=== PATIENT | male | born 1985 | race Two or more races ===

== ENCOUNTER 2018-03-10 11:21 | Emergency (ER) | payer OTHER ==
[2018-03-10] MEDS ORDERED: ONDANSETRON 4 MG/2 ML VIAL IVP STA (13:27)
[2018-03-10] MEDS ORDERED: MORPHINE 2 MG/ML CARPUJECT IVP STA ×2 (13:27→16:08)
[2018-03-10] MEDS ORDERED: IOPAMIDOL-300 100 ML VIAL ONE (13:32)
--- NOTE | 2018-03-10 13:32 | ED Physician Documentation ---
PD HPI HEADACHE - Stated complaint Stated Complaint: MIGRAINE - Chief complaint Chief Complaint: Neuro - History obtained from History obtained from: Patient - History of Present Illness Timing - onset: Other (This is a 32-year-old gentleman with no significant past medical history no history of headache syndrome who over the last 3 days has had episodic global severe headaches. Basically the pattern is he has a rapid onset headache over 3 minutes that is a pulsatile sensation with light sensitivity and he has nausea and vomited once on Thursday. He has had this 2 more times since. Then has a persistent mild headache in between. There is no URI symptoms or fever, no neck stiffness. No recent international travel but he did travel across the [place].) Review of Systems Ten Systems: 10 systems reviewed and negative Constitutional: denies: Fever, Chills Throat: denies: Sore throat Cardiac: denies: Chest pain / pressure, Palpitations Respiratory: denies: Dyspnea, Cough GI: denies: Abdominal Pain PD PAST MEDICAL HISTORY - Past Surgical History Past Surgical History: No - Present Medications Home Medications: Ambulatory Orders Medication Instructions Recorded Confirmed Hydrocodone/Acetaminophen 1 - 2 each PO Q6H PRN #14 tablet 03/10/18 [Hydrocodon-Acetaminophen 5-325] Ibuprofen [Motrin] 800 mg PO Q8H PRN #30 tablet 03/10/18 Ondansetron Odt [Zofran] 4 mg TL Q6H PRN #10 tablet 03/10/18 - Allergies Allergies/Adverse Reactions: Allergies Allergy/AdvReac Type Severity Reaction Status Date / Time No Known Drug Allergies Allergy Verified 03/10/18 11:31 - Social History Does the pt smoke?: No Smoking Status: Never smoker Does the pt drink ETOH?: No Does the pt have substance abuse?: No - Immunizations Immunizations are current?: Yes PD ED PE NORMAL - Vitals Vital signs reviewed: Yes - General General: Alert and oriented X 3 (He appears uncomfortable and photophobic) - HEENT HEENT: EOMI, Other (Pupils are slightly dilated but symmetric) - Neck Neck: Supple, no meningeal sign, No bony TTP - Cardiac Cardiac: RRR, No murmur - Respiratory Respiratory: No respiratory distress, Clear bilaterally - Abdomen Abdomen: Normal bowel sounds, Soft, Non tender - Back Back: No CVA TTP, No spinal TTP - Derm Derm: Normal color, Warm and dry - Extremities Extremities: No edema, No calf tenderness / cord - Neuro Neuro: Alert and oriented X 3, Normal speech - Psych Psych: Normal mood, Normal affect Results - Vitals Vitals: Vital Signs - 24 hr 03/10/18 11:29 Temperature 36.5 C Heart Rate 71 Respiratory 20 Rate Blood Pressure 152/110 H O2 Saturation 98 Oxygen O2 Source Room air - Rads (name of study) CT Head/CTA Head Radiology: EMP read contemporaneously (both normal, no SAH or aneurysm) Procedures - Lumbar Puncture Position: Sitting Location: L3-L4 Anesthesia: Local lidocaine CSF: Clear Other: Sterile prep and drape, Patient tolerated well, No complications PD MEDICAL DECISION MAKING - ED course ED course: 32-year-old gentleman with worst headache of life, pattern is concerning for subarachnoid hemorrhage. Initially screened with head CT and angiogram which were negative and given persistent symptoms unrelieved by medications this was followed by lumbar puncture which was also negative. - Sepsis Event Vital Signs: Vital Signs - 24 hr 03/10/18 11:29 Temperature 36.5 C Heart Rate 71 Respiratory 20 Rate Blood Pressure 152/110 H O2 Saturation 98 Oxygen O2 Source Room air Departure - Departure Disposition: 01 Home, Self Care Clinical Impression: Headache Qualifiers: Headache type: unspecified Headache chronicity pattern: acute headache Intractability: intractable Qualified Code(s): R51 - Headache Condition: Good Record reviewed to determine appropriate education?: Yes Instructions: ED Cephalgia Unspecified Prescriptions: Hydrocodone/Acetaminophen [Hydrocodon-Acetaminophen 5-325] 1 - 2 each PO Q6H PRN #14 tablet PRN Reason: pain Ibuprofen [Motrin] 800 mg PO Q8H PRN #30 tablet PRN Reason: PAIN &/OR FEVER Ondansetron Odt [Zofran] 4 mg TL Q6H PRN #10 tablet PRN Reason: Nausea / Vomiting Comments: Call your doctor to arrange a follow-up appointment, make the next available appointment. In the interim, return anytime if worse or if new symptoms develop. Your blood pressure was elevated today on check into the emergency department. This does not mean that you have hypertension, it is a common phenomenon to come to the emergency department and have elevated blood pressure. I recommend that you see your primary care physician within the week to have it rechecked when you are feeling better.
[2018-03-10 13:48] LABS: BASOPHILS % (AUTO) 0.6 %; EOSINOPHILS # (AUTO) 0.1 10^3/uL (0.0-0.7); EOSINOPHILS % (AUTO) 1.2 %; HGB - HEMOGLOBIN 14.3 g/dL (14.0-18.0); LYMPHOCYTES # (AUTO) 1.5 10^3/uL (1.5-3.5); LYMPHOCYTES % (AUTO) 17.8 %; MEAN CORPUSCULAR HGB CONC 34.5 g/dL (32.0-36.0); MEAN CORPUSCULAR VOLUME 86.9 fL (80.0-94.0); MEAN PLATELET VOLUME 7.6 fL (7.4-11.4); MONOCYTES # (AUTO) 0.5 10^3/uL (0.0-1.0); MONOCYTES % (AUTO) 5.5 %; NEUTROPHILS # (AUTO) 6.4 10^3/uL (1.5-6.6); NEUTROPHILS % (AUTO) 74.9 %; PLT - PLATELET COUNT 233 10^3/uL (130-450); RED BLOOD COUNT 4.78 10^6/uL (4.70-6.10); RED CELL DISTRIBUTION WIDTH 13.3 % (12.0-15.0); WHITE BLOOD COUNT 8.5 x10^3/uL (4.8-10.8)
[2018-03-10 13:59] LABS: ALBUMIN 4.4 g/dL (3.2-5.5); ALBUMIN/GLOBULIN RATIO 1.4 (1.0-2.2); BILIRUBIN,TOTAL 0.6 mg/dL (0.2-1.0); CALCIUM 9.2 mg/dL (8.5-10.3); TOTAL PROTEIN 7.6 g/dL (6.7-8.2)
[2018-03-10 14:07] LABS: PT - PROTHROMBIN TIME 11.4 secs (9.9-12.6)
--- NOTE | 2018-03-10 14:15 | CT Report ---
Reason: WHOL, do not wait for labs Procedure Date: 03/10/2018 Accession Number: [id number] / [id number] Procedure: CT - Head W/O CPT Code: FULL RESULT: EXAM: CT HEAD EXAM DATE: 03/10/2018 01:59 PM. CLINICAL HISTORY: WHOL, do not wait for labs. COMPARISON: None. TECHNIQUE: Multiaxial CT images were obtained from the foramen magnum to the vertex. Reformats: Sagittal and coronal. IV contrast: None. In accordance with CT protocol optimization, one or more of the following dose reduction techniques were utilized for this exam: automated exposure control, adjustment of mA and/or KV based on patient size, or use of iterative reconstructive technique. FINDINGS: Parenchyma: No intraparenchymal hemorrhage. No evidence of mass, midline shift, or CT findings of infarction. Amezcua-white differentiation is distinct. Extraaxial Spaces: Normal for age. No subdural or epidural collections identified. Ventricles: Normal in size and position. Sinuses and Orbits: There is mild to moderate bilateral maxillary sinus mucosal thickening. No air-fluid level. Other sinuses are clear. Bones: No evidence of fracture or calvarial defect. Other: None. IMPRESSION: 1. Negative for intracranial acute hemorrhage, localizing edema or mass-effect. 2. Mucosal thickening, probably subacute to chronic bilateral maxillary sinus inflammatory disease. RADIA
[2018-03-10] MEDS ORDERED: IOPAMIDOL-300 100 ML VIAL IVP ONE (14:29)
--- NOTE | 2018-03-10 14:33 | CT Report ---
Reason: WHOL, do not wait for labs Procedure Date: 03/10/2018 Accession Number: [id number] / [id number] Procedure: CT - Head Angio CPT Code: FULL RESULT: CT ANGIOGRAM HEAD AND POSTCONTRAST HEAD CT INDICATION: 32-year-old male with worst headache of life. Please assess. TECHNIQUE: CT angiogram head 80 cc of Isovue-300 contrast were injected at a rapid rate through a large bore, antecubital intravenous catheter. The head was scanned helically during arterial phase. Data was reconstructed into 0.5 mm axial images. In addition, MIP reconstructions have been generated in multiple projections to allow better assessment of the intracranial arteries. Postcontrast head CT Sequential 5 mm axial images were obtained through the brain following the CT angiogram. In accordance with CT protocol optimization, one or more of the following dose reduction techniques were utilized for this exam: automated exposure control, adjustment of mA and/or KV based on patient size, or use of iterative reconstructive technique. COMPARISON: None. FINDINGS: CT angiogram head Anterior circulation: There is marked tortuosity of the carotid siphons bilaterally, making evaluation somewhat challenging. However, no ICA stenosis is demonstrated and there is no obvious ICA aneurysm. The A1 segment of the left anterior cerebral artery is mildly hypoplastic with larger right A1 segment. No definite anterior communicating artery is demonstrated. There appears to be good filling of the A2 and distal OSVALDO branches bilaterally. No obvious OSVALDO branch occlusion is demonstrated. No OSVALDO circulation aneurysm is identified. The middle cerebral arteries are unremarkable. No aneurysm is demonstrated and there is no obvious occlusion or hemodynamically significant stenosis affecting main branches of either MCA. Posterior circulation: The right vertebral artery is mildly hypoplastic with dominant left vertebral artery. No stenosis is identified in either vertebral artery. There is mild, fusiform dilatation of the mid V4 segment of the left vertebral artery. It measures up to about 3.4 mm diameter. More proximally and distally it measures about 2.6 mm diameter. There is filling of left PICA. No right PICA is demonstrated. The right PICA territory is probably supplied by the contralateral PICA or ipsilateral AICA. No aneurysm is seen at the left PICA origin. The basilar artery, superior cerebellar arteries and main branches of the posterior cerebral arteries appear widely patent. There appear to be tiny, posterior communicating arteries bilaterally. No aneurysms are demonstrated arising from the basilar artery trunk or apex. Postcontrast head CT No enhancing space-occupying mass lesion is demonstrated. There appears to be normal intravascular contrast enhancement in the dural venous sinuses and deep venous structures. IMPRESSION: CT angiogram head Unremarkable study. In particular, no intracranial aneurysm is identified. Postcontrast head CT No enhancing space-occupying mass lesion is demonstrated.
[2018-03-10] MEDS ORDERED: diphenhydrAMINE INJ 50 MG/ML VIAL IVP STA (14:44)
[2018-03-10] MEDS ORDERED: METOCLOPRAMIDE 10 MG/2 ML VIAL IVP STA (14:44)
[2018-03-10] MEDS ORDERED: LIDOCAINE 1%-EPI 1:100000 30 ML MDV SUBQ STA (15:37)
[2018-03-10] MEDS ORDERED: LIDOCAINE 1%-EPI 1:100000 30 ML MDV ONE (15:40)
[2018-03-10] MEDS ORDERED: KETOROLAC 60 MG/2 ML VIAL IVP STA (16:08)
[2018-03-10 16:35] LABS: CLARITY,CSF CLEAR (CLEAR); CSF TUBE # CSF TUBE# 3
[2018-03-10 16:36] LABS: COLOR,CSF COLORLESS (COLORLESS); CSF XANTHOCHROMIA ABSENT (ABSENT); RED BLOOD CELL,CSF 0 /mm^3 (0-1); WHITE BLOOD CELL,CSF 1 /mm^3 (0-5)
[2018-03-10 16:38] LABS: CSF - GLUCOSE 72 mg/dL (45-70)
[2018-03-10 17:21] VITALS: BP 139/100
== END 2018-03-10 17:21 | disposition home or self-care (01) ==
LOC: ED 11:21
DX: R51 Headache (principal); R03.0 Elevated blood-pressure reading, without diagnosis of hypertension
CPT/HCPCS: 36415; 62270; 70450; 70496; 80053; 82945; 83690; 84157; 85025; 85610; 87070; 87205; 89051; 96374; 96375; 96376; 99283; J1200; J2765; Q9967